=== PATIENT | male | born 1990 | race Caucasian/White ===

== ENCOUNTER 2024-01-27 08:11 | Emergency (ER) | payer OTHER, SELFPAY ==
[2024-01-27] VITALS (20 sets, daily range): BP systolic 111–165; BP diastolic 74–108; PULSE 82–131; RESP 16–20; TEMP 36.6; O2SAT 93–100
--- NOTE | 2024-01-27 08:32 | ED.NAVMDI ---
HPI - Nausea/Vomiting/Diarrhea General Chief complaint: Nausea/Vomiting/Diarrhea Stated complaint: throwing up blood since 5 am Time Seen by Provider: 01/27/24 08:28 Source: patient and family ( Mother) Mode of arrival: ambulatory Limitations: no limitations History of Present Illness HPI Narrative: Patient presents with report of vomiting blood. Patient awoke with epigastric abdominal pain at approximately 5:00 a.m.. He states this has never happened before. He had 3 episodes of what he describes as coffee-ground emesis. pain is 7/10 severity. No syncope but he did feel lightheaded upon standing. No history of peptic ulcer disease, cirrhosis, liver failure. 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 Patient denies any aspirin, steroids, anticoagulation, chemotherapy, or NSAID use. He states he drinks alcohol approximately twice weekly. only medication is an allergy pill and Flonase. Denies lower extremity edema or history of heart failure. Denies chest pain. patient does not have a primary care physician. Related Data Allergies Allergy/AdvReac Type Severity Reaction Status Date / Time morphine Allergy Intermediate Hives Verified 01/27/24 08:23 [facility] Past Medical History Medical History (Updated 01/27/24 @ 10:04 by Yu Beverly MD) Allergies Surgical History Surgical History (Updated 01/27/24 @ 08:42 by Yu Beverly MD) History of appendectomy Social History Social History (Updated 01/27/24 @ 08:46 by Yu Beverly MD) Alcohol intake: current Alcohol use details: Drinks twice weekly Exam Narrative: GENERAL: Well-appearing, well-nourished, and in no acute distress. HEAD: Normocephalic, atraumatic. EYES: Non injected, non icteric ENT: Nares clear, no rhinorrhea or epistaxis. NECK: Supple. CHEST: Speaking in full sentences. No respiratory distress. HEART: Regular rate and rhythm. ABDOMEN: Soft, nondistended. Non tender to palpation without rigidity or guarding. Rectal exam performed. Normal sphincter tone. EXTREMITIES: Normal range of motion. No edema. SKIN: Warm, dry, no rash. NEURO: No focal deficits. Alert and oriented x3. PSYCH: Normal mood and affect. Course Vital Signs Vital signs: Vital Signs Temperature 97.9 F 01/27/24 08:18 Pulse Rate 98 05/29/24 08:18 Respiratory Rate 20 01/27/24 08:18 Blood Pressure 152/105 H 01/27/24 08:18 Pulse Oximetry 100 01/27/24 08:18 Oxygen Delivery Room Air 01/27/24 08:18 Temperature 97.9 F 01/27/24 08:18 Pulse Rate 89 01/27/24 13:31 Respiratory Rate 16 01/27/24 13:31 Blood Pressure 123/74 01/27/24 13:31 Pulse Oximetry 98 01/27/24 13:31 Oxygen Delivery Room Air 01/27/24 08:18 MDM - Nausea/Vomiting/Diarrhea MDM Narrative Medical decision making narrative: 33 yo male who presents with epigastric pain followed by coffee ground hematemesis. In the emergency department he is afebrile vital signs notable for hypertension. Patient given analgesic medication and Protonix 80mg. Patient is not anemic initially. [place] bleeding score: Based on patient's Hgb, BUN, initial SBP, sex, heart rate, presence/absecne of melena, syncope, hepatic disease, cardiac failure = 0 points. Low risk for GI bleed. WBCs in urine w/o bacteria; will not treat given isolated pyuria. Blood pressure does not significant change with orthostatics. Not anemic on repeat/serial H&H. It did slightly decrease although within margin of error and possibly slightly dilutional in the setting of IV fluid Suspect due to peptic ulcer disease. Patient discharged with Rx for omeprazole and follow up instructions as well as ED return precautions. Differential Diagnosis Differential diagnosis: Likely other (upper GI bleed, likely benign as no evidence of cirrhosis/varices) Lab Data Attestation: I reviewed the patient's lab results. Lab results narrative: Mild leukocytosis. 01/26
[2024-01-27 08:39] LABS: Basophils Absolute Auto 0.1 K/mm3 (0.0-0.1); Basophils Percent Auto 0.6 % (0.2-1.2); Eosinophils Absolute Auto 0.2 K/mm3 (0-0.3); Eosinophils Percent Auto 1.4 % (0-4.4); Hematocrit 52.1 % (42.0-52.0); Immature Granulocyte Absolute 0.08 K/mm3 (0.00-0.031); Immature Granulocyte Percent A 0.8 % (0-0.5); Lymphocytes Absolute Auto 2.07 K/mm3 (0.9-3.2); Lymphocytes Percent Auto 19.7 % (18.3-44.2); Mean Corpuscular HGB Conc 34.5 g/dl (32-36); Mean Corpuscular Hemoglobin 29.7 pg (26-34); Mean Corpuscular Volume 85.8 fl (80-100); Mean Platelet Volume 11.1 fl (7.4-10.4); Monocytes Absolute Auto 0.8 K/mm3 (0.1-0.6); Monocytes Percent Auto 7.8 % (2.6-8.5); Neutrophils Absolute Auto 7.3 K/mm3 (1.3-6.7); Neutrophils Percent Auto 69.7 % (45.5-73.1); Platelet Count Result 306 k/mm3 (150-375); Red Blood Count 6.07 M/mm3 (4.6-6.20); Red Cell Distribution Width 12.1 % (11.5-14.5); White Blood Count 10.5 K/mm3 (4.5-10.0)
[2024-01-27] MEDS: PANTOPRAZOLE SODIUM IV 40 MG VIAL 80 MG IV PUSH (08:47)
[2024-01-27] MEDS: ACETAMINOPHEN 500 MG TABLET 1000 MG PO (09:02)
[2024-01-27] MEDS: HALOPERIDOL LACTATE 5 MG/ML VIAL 2.5 MG IV PUSH (09:02)
[2024-01-27 09:04] LABS: Alanine Aminotransferase 26 U/L (6-50); Albumin Level 5.1 g/dL (3.5-5.1); Alkaline Phosphatase 110 U/L (38-126); Anion Gap 16 mmol/L (4-12); Aspartate Amino Transferase 23 U/L (17-59); Bilirubin,Total 0.5 mg/dL (0.2-1.3); Blood Urea Nitrogen 11 mg/dL (9-20); Calcium 9.7 mg/dL (8.4-10.2); Carbon Dioxide 20 mmol/L (22-30); Chloride 104 mmol/L (98-107); Estimated CRCL calculation 98 ml/min; Estimated Glomerular Filt Rate > 60; Glucose 128 mg/dL (65-110); Lipase 261 U/L (23-300); Magnesium 2.2 mg/dL (1.6-2.3); Potassium 3.4 mmol/L (3.4-5.0); Sodium 140 mmol/L (137-145)
[2024-01-27] MEDS: SODIUM CHLORIDE 0.9% IV 1,000 ML 999 ML IV CONT (09:29)
[2024-01-27 09:57] LABS: Appearance Urine Turbid (Clear); Bacteria Urine Rare /hpf; Bilirubin Urine Negative (Negative); Blood Urine Negative (Negative); Color Urine Yellow (Yellow); Glucose Urine UA Negative (Negative); Ketones Urine 1+ mg/dL (Negative); Leukocyte Esterase Ur Negative LEU/UL (Negative); Need Manual Microscopic Reviewed; Nitrate Urine Negative (Negative); Protein Urine 2+ mg/dL (Negative); RBC Urine 0-2 /hpf (0-2); Specific Grav Ur 1.031 (1.001-1.035); Squamous Epithelial Cell Urine None Seen /hpf (Few)
[2024-01-27 09:58] LABS: Add Urine Microscopic? YES
[2024-01-27 09:59] LABS: Amorphous Sediment Urine Moderate
[2024-01-27 12:56] LABS: Hematocrit 50.8 % (42.0-52.0); Hemoglobin 17.4 g/dL (14.0-18.0)
== END 2024-01-27 13:53 | disposition home or self-care (01) ==
PROVIDERS: Emergency Provider Student in an Organized Health Care Education/Training Program
DX: K92.0 Hematemesis (principal); D72.829 Elevated white blood cell count, unspecified; R82.81 Pyuria
CPT/HCPCS: 36415; 80053; 81001; 83690; 83735; 85014; 85018; 85025; 87086; 96361; 96374; 96375; 99284; A9270; C9113; J1630; J7030